=== PATIENT | male | born 1950 | race Two or more races ===

== ENCOUNTER 2019-04-01 13:35 | Emergency (ER) | payer OTHER ==
[~2019-04-01] VITALS: Ht 167.6 cm; Wt 90.9 kg
--- NOTE | 2019-04-01 14:08 | NUR ---
PT BRADLEY OROZCO FROM WORK. STATES THAT AFTER HE BENT OVER HE FELT A PAIN ON HIS RIGHT LATERAL BACK. PT XIOMYY RESTING ON GURNEY. NADN. WHEN MOVING, PAIN IS OBVIOUS PT GRIMACES. SPASMS ARE FELT ALONG LOWER SPINE. HAS ASSESSED PT. PT AWARE OF POC. NADN. VSS. CONNECTED TO MONITOR.
--- NOTE | 2019-04-01 14:11 | NUR ---
RADIOLOGY AT BEDSIDE NOW.
--- NOTE | 2019-04-01 14:13 | NUR ---
PT TO RADIOLOGY NOW.
[2019-04-01] MEDS ORDERED: KETOROLAC 30 MG/1 ML ONE (14:21)
[2019-04-01] MEDS ORDERED: DIAZEPAM 5 MG/ML, 2ML ONE (14:21)
[2019-04-01] MEDS ORDERED: DIAZEPAM 5 MG/ML, 2ML IVPush ONE (14:30)
[2019-04-01] MEDS ORDERED: KETOROLAC 30 MG/1 ML IVPush ONE (14:30)
[2019-04-01 14:31] VITALS: BP 143/70
--- NOTE | 2019-04-01 14:31 | NUR ---
PT MEDICATED PER EMAR. RESTING ON GURNEY. NADN. VSS. DENIES NEEDS.
--- NOTE | 2019-04-01 14:32 | NUR ---
PT UP FOR RECHECK NOW.
--- NOTE | 2019-04-01 15:15 | NUR ---
PT AWARE OF DC PLAN. GETTING DRESSED NOW.
== END 2019-04-01 15:46 | disposition home or self-care (01) ==
LOC: ED 15:20
DX: S39.012A Strain of muscle, fascia and tendon of lower back, initial encounter (principal); E11.9 Type 2 diabetes mellitus without complications; X58.XXXA Exposure to other specified factors, initial encounter; Y93.89 Activity, other specified; Y92.89 Other specified places as the place of occurrence of the external cause; Y99.8 Other external cause status
CPT/HCPCS: 72110; 96374; 96375; 99283; J1885; J3360